=== PATIENT | male | born 1960 | race Caucasian/White ===

== ENCOUNTER 2018-04-23 12:54 | Day surgery (SDC) | payer OTHER ==
[2018-04-23] MEDS: NS 1,000 ML IV (13:15)
[2018-04-23] MEDS ORDERED: fentaNYL 100 MCG/2 ML INJECTION (J3010) As Ordered (15:08)
[2018-04-23] MEDS ORDERED: PROPOFOL 200 MG/20 ML VIAL As Ordered (15:08)
[2018-04-23] MEDS ORDERED: LIDOCAINE 2% INJ 100 MG/5 ML SDV (FOR ANES.) As Ordered (15:08)
== END 2018-04-23 15:52 | disposition home or self-care (01) ==
LOC: M OPP 12:54
DX: R12 Heartburn (principal); K22.8 Other specified diseases of esophagus; K44.9 Diaphragmatic hernia without obstruction or gangrene; E78.5 Hyperlipidemia, unspecified; K21.9 Gastro-esophageal reflux disease without esophagitis; M19.90 Unspecified osteoarthritis, unspecified site; Z96.651 Presence of right artificial knee joint; Z79.899 Other long term (current) drug therapy; Z80.7 Family history of other malignant neoplasms of lymphoid, hematopoietic and related tissues
CPT/HCPCS: 43239

== ENCOUNTER → 2020-07-26 | Outpatient (CLI) | payer OTHER ==
[~2020-07-26] MED LIST: ACET65TA OR; COUM1TAB17 OR; CRESTOR PO; OMEP-221; PANT40TA29 PO; PERC7.5T8 OR; ROSU5TAB5 PO; SUCR1TAB56 PO
== END ==
LOC: M LABSMTC 11:10
PROVIDERS: ATTEND Anesthesiology
DX: Z01.812 Encounter for preprocedural laboratory examination (principal); Z20.828 Contact with and (suspected) exposure to other viral communicable diseases
CPT/HCPCS: C9803; U0003

== ENCOUNTER 2020-07-31 11:48 | Day surgery (SDC) | payer OTHER ==
[~2020-07-31] VITALS: Ht 162.6 cm; Wt 83.6 kg
[~2020-07-31 11:48] MED LIST changes: +NS 1,000 ML IV ONE
[2020-07-31] MEDS ORDERED: propofoL 200 MG/20 ML VIAL As Ordered ONE (11:57)
[2020-07-31] MEDS ORDERED: LIDOCAINE 2% 100MG/5ML SDV (FOR ANES.) As Ordered ONE (11:57)
[2020-07-31] MEDS ORDERED: fentaNYL 100 MCG/2 ML INJECTION (J3010) As Ordered ONE (13:09)
[2020-07-31] MEDS ORDERED: ePHEDrine SULFATE 25 MG/5 ML(5MG/ML) SYRINGE As Ordered ONE (13:26)
--- NOTE | 2020-07-31 13:27 | ROOR ---
Patient Name: Marcus Garcia Procedure Date: 07/31/2020 1:07 PM Date of : 1960 Age: 60 Room: [facility] Gender: Male Note Status: Finalized Procedure: Upper GI endoscopy Indications: Surveillance for malignancy due to personal history of Junior's esophagus, Heartburn Providers: Robin BATEMAN MD Referring MD: Thai Olvera MD Requesting Provider: Medicines: Monitored Anesthesia Care Complications: No immediate complications. Procedure: Pre-Anesthesia Assessment: - The heart rate, respiratory rate, oxygen saturations, blood pressure, adequacy of pulmonary ventilation, and response to care were monitored throughout the procedure. The Endoscope was introduced through the mouth, and advanced to the second part of duodenum. The upper GI endoscopy was accomplished without difficulty. The patient tolerated the procedure well. Findings: The Z-line was variable and was found 39 cm from the incisors. This was biopsied with a cold forceps for histology. The exam of the esophagus was otherwise normal. Small Hiatal Hernia. The entire examined stomach was normal. Prominent, but not necessarily abnormal papilla. This was biopsied with a cold forceps for histology. The exam of the duodenum was otherwise normal. Impression: - Z-line variable, 39 cm from the incisors. Biopsied. - Small Hiatal Hernia. - Normal stomach. - Prominent, but not necessarily abnormal papilla. Biopsied. - The duodenum is otherwise normal Recommendation: - Observe patient's clinical course. - Continue present medications. - Repeat upper endoscopy in 3 years for surveillance. Robin Bateman MD Robin BATEMAN MD 07/31/2020 1:26:56 PM Electronically signed by Robin BATEMAN MD Number of Addenda: 0 Note Initiated On: 07/31/2020 1:07 PM Estimated Blood Loss: Estimated blood loss: none.
--- NOTE | 2020-07-31 13:37 | ROOR ---
Patient Name: Marcus Garcia Procedure Date: 07/31/2020 1:08 PM Date of : 1960 Age: 60 Room: [facility] Gender: Male Note Status: Finalized Procedure: Colonoscopy Indications: High risk colon cancer surveillance: Personal history of colonic polyps Providers: Robin BATEMAN MD Referring MD: Thai Olvera MD Requesting Provider: Medicines: Monitored Anesthesia Care Complications: No immediate complications. Procedure: Pre-Anesthesia Assessment: - The heart rate, respiratory rate, oxygen saturations, blood pressure, adequacy of pulmonary ventilation, and response to care were monitored throughout the procedure. The Colonoscope was introduced through the anus and advanced to the terminal ileum, with identification of the appendiceal orifice and IC valve. The colonoscopy was performed without difficulty. The patient tolerated the procedure well. The quality of the bowel preparation was good. Findings: The perianal and digital rectal examinations were normal. Internal hemorrhoids were found during retroflexion. The hemorrhoids were moderate. The entire examined colon appeared normal on direct and retroflexion views. The terminal ileum appeared normal. Impression: - Internal hemorrhoids. - The entire colon is normal on direct and retroflexion views. - The examined portion of the ileum was normal. - No specimens collected. Recommendation: - Repeat colonoscopy in 5 years for surveillance. Robin Bateman MD Robin BATEMAN MD 07/31/2020 1:37:28 PM Electronically signed by Robin BATEMAN MD Number of Addenda: 0 Note Initiated On: 07/31/2020 1:08 PM Estimated Blood Loss: Estimated blood loss: none.
[2020-07-31 14:04] VITALS: BP 116/71
== END 2020-07-31 14:05 | disposition home or self-care (01) ==
LOC: M OPP 11:48
PROVIDERS: ATTEND Internal Medicine Gastroenterology
DX: Z86.010 Personal history of colon polyps (principal); Z09 Encounter for follow-up examination after completed treatment for conditions other than malignant neoplasm; K64.8 Other hemorrhoids; K22.8 Other specified diseases of esophagus; K22.70 Barrett's esophagus without dysplasia; K44.9 Diaphragmatic hernia without obstruction or gangrene; R12 Heartburn; Z79.899 Other long term (current) drug therapy
CPT/HCPCS: 43239; 45378; 88305; J3010

== ENCOUNTER → 2020-10-08 | Outpatient (CLI) | payer OTHER ==
[~2020-10-08] MED LIST changes: -NS 1,000 ML IV ONE
[2020-10-08 11:51] LABS: HEMATOCRIT 45.8 % (42.0-52.0); HEMOGLOBIN 14.9 g/dl (13.5-17.5); MEAN CORPUSCULAR HEMOGLOBIN 28.3 pg (27.0-33.0); MEAN CORPUSCULAR HGB CONC 32.5 g/dl (32.0-36.5); MEAN CORPUSCULAR VOLUME 86.9 fl (80.0-96.0); PLATELET COUNT, AUTOMATED 201 10^3/uL (150-450); RED BLOOD COUNT 5.27 10^6/uL (4.30-6.10)
[2020-10-08 12:06] LABS: INR 0.82; PROTHROMBIN TIME 11.5 SECONDS (12.5-14.3)
[2020-10-08 12:28] LABS: ALBUMIN 4.3 GM/DL (3.2-5.2); ALT/SGPT 49 U/L (12-78); BILIRUBIN,TOTAL 0.5 MG/DL (0.2-1.0); BLOOD UREA NITROGEN 19 MG/DL (7-18); CALCIUM LEVEL 9.5 MG/DL (8.8-10.2); CARBON DIOXIDE LEVEL 30 MEQ/L (21-32); CHLORIDE LEVEL 106 MEQ/L (98-107); CREATININE FOR GFR 1.14 MG/DL (0.70-1.30); GLOMERULAR FILTRATION RATE > 60.0 (>49); GLUCOSE, FASTING 91 MG/DL (70-100); POTASSIUM SERUM 4.3 MEQ/L (3.5-5.1); SODIUM LEVEL 139 MEQ/L (136-145); TOTAL PROTEIN 7.7 GM/DL (6.4-8.2)
[2020-10-08 12:29] LABS: ERYTHROCYTE SEDIMENTATION RATE 5 mm/hr (0-20)
--- NOTE | 2020-10-08 15:09 | REP ---
INDICATION: OSTEOARTHRITIS LEFT KNEE LAB 1ST EKG 2ND XR 3RD. COMPARISON: Comparison chest x-ray September 05, 2010. TECHNIQUE: Two views.. FINDINGS: The lungs are well inflated and free of infiltrate. The pleural angles are sharp. The heart size is normal. Pulmonary vasculature is not increased. No significant bony abnormality is seen. There are degenerative changes in the thoracic spine. IMPRESSION: No active disease.. <Electronically signed by Yaya Hart > 10/08/20 [id number]
--- NOTE | 2020-10-09 08:33 | ECGEPIP ---
[facility] Test Date: 2020-10-08 Pat Name: JOANIE WEST Department: Room: - Gender: Male [place]: : 1960 Requested By: David Borja Order Number: [id number] Reading MD: Moi Terrell Measurements Intervals [place] Rate: 72 P: 34 ND: 147 QRS: 26 QRSD: 91 T: 17 QT: 378 QTc: 414 Interpretive Statements SINUS RHYTHM Normal Electronically Signed on 10-09-2020 8:32:55 EST by Moi Terrell
== END ==
LOC: M LAB 11:12
PROVIDERS: ATTEND Orthopaedic Surgery
DX: M17.12 Unilateral primary osteoarthritis, left knee (principal)

== ENCOUNTER → 2020-10-21 | Outpatient (CLI) | payer OTHER ==
[~2020-10-21] MED LIST changes: -OMEP-221; +OMEP-221 PO
== END ==
LOC: M LABSMTC 08:06
PROVIDERS: ATTEND Anesthesiology
DX: Z01.812 Encounter for preprocedural laboratory examination (principal); Z20.828 Contact with and (suspected) exposure to other viral communicable diseases

== ENCOUNTER 2020-10-24 09:43 | Inpatient (IN) | payer OTHER ==
--- NOTE | 2020-10-17 11:59 | HPE ---
HISTORY AND PHYSICAL DATE OF ANTICIPATED ADMISSION: 10/24/2020 CHIEF COMPLAINT: Left knee pain and stiffness. ATTENDING: David Gold M.D. HISTORY OF PRESENT ILLNESS: This is a 60-year-old male patient with progressively worsening left knee pain and stiffness. He has failed to improve with conservative management to include injections in his left knee. He has elected for surgery for his continued symptoms. He is consented for a left total knee arthroplasty with Dr. Gold. X-rays notable for [id number] tricompartmental degenerative changes of the left knee. Medical optimization pending with Dr. Olvera. ALLERGIES: No known drug allergies. CURRENT MEDICATIONS: - Prilosec 10 mg one tablet once per day - Crestor one tablet once per day PAST MEDICAL HISTORY: Medical conditions include symptomatic osteoarthritis of the left knee, osteoarthritis of the left knee, gastric reflux disease, and elevated cholesterol. FAMILY HISTORY: Non-contributory. SOCIAL HISTORY: He does not currently smoke. He uses alcohol on an occasional basis. REVIEW OF SYSTEMS: Denies fevers or chills. Denies chest pain, shortness of breath, or cough. Denies difficulty breathing. Denies abdominal pain. Denies nausea or vomiting. Denies recent exposure to COVID-19. Notes persistent pain in his left knee with weightbearing activities and activities of daily living. PHYSICAL EXAMINATION: GENERAL APPEARANCE: Today reveals a patient who walks with a slightly limped gait favoring his right side. NECK: Supple without adenopathy or JVD. LUNGS: Clear to auscultation without rales or wheeze. HEART: Regular rate and rhythm. ABDOMEN: Bowel sounds are present. EXTREMITIES: Exam of the knee reveals the skin to be intact. No erythema, edema, or ecchymosis. There is tenderness mildly over the medial joint line and some tenderness laterally as well. Patellar grind is irritable. Range of motion is full with some irritability at the extremes of range of motion. The calf is soft and nontender to palpation. There is a well-perfuse left lower extremity. LABORATORY DATA: ProTime 11.5, INR 0.82. Glucose 91, BUN 19, creatinine 1.14, sodium 139, potassium 4.3. Sed rate of 5. WBC count of 6. RBC count of 5.2, hemoglobin 14.9, hematocrit 45.8. IMAGING: Chest x-ray with no acute cardiopulmonary disease process noted. EKG sinus rhythm. IMPRESSION: Symptomatic osteoarthritis of the left knee. PLAN: He has been consented for a left total knee arthroplasty by Dr. Gold. We reviewed his postoperative and preoperative instructions to include n.p.o. after midnight, what n.p.o. means, and only take the medications as directed by his primary. He knows to stop NSAIDs five days prior to surgery and understands what NSAIDs are. He understands the self-quarantine after his COVID testing and he needs to be on time for the appointment. We discussed the current status for inpatient. We discussed COVID for visitors. All of his questions were answered.
[~2020-10-24] VITALS: Ht 160 cm; Wt 85.2 kg
[2020-10-24] VITALS (7 sets, daily range): BP systolic 110–143; BP diastolic 65–99
[~2020-10-24 09:43] MED LIST changes: +ACETAMINOPHEN 500 MG TAB PO ONE; +LR 1,000 ML IV ONE; +ceFAZolin SOD 2 GM in IV 1 EA IV ONE
[2020-10-24] MEDS ORDERED: BUPIVACAINE HCL 0.25% 10ML VIAL As Ordered ONE (12:19)
[2020-10-24] MEDS ORDERED: TRANEXAMIC ACID 100 MG/ML 10ML VIAL As Ordered ONE (12:19)
[2020-10-24] MEDS ORDERED: EPINEPHrine INJ 1 MG/ML 1ML AMP As Ordered ONE (12:20)
[2020-10-24] MEDS ORDERED: BUPIVACAINE LIPOSOME/PF 1.3% 20ML VIAL (13.3MG/ML)(EXPAREL)(C9290 PER1MG) As Ordered ONE (12:20)
[2020-10-24] MEDS ORDERED: LIDOCAINE 2% 100MG/5ML SDV (FOR ANES.) As Ordered ONE (12:48)
[2020-10-24] MEDS ORDERED: propofoL 200 MG/20 ML VIAL As Ordered ONE ×2 (12:48→15:04)
[2020-10-24] MEDS ORDERED: MIDAZOLAM INJ 2MG/2ML VIAL (J2250 PER 1MG) As Ordered ONE (12:48)
[2020-10-24] MEDS ORDERED: ONDANSETRON 4MG/2ML VIAL As Ordered ONE (12:48)
[2020-10-24] MEDS ORDERED: fentaNYL 100 MCG/2 ML INJECTION (J3010) As Ordered ONE (12:48)
[2020-10-24] MEDS ORDERED: MIDAZOLAM INJ 2MG/2ML VIAL (J2250 PER 1MG) IV PRN (13:15)
[2020-10-24] MEDS ORDERED: dexameTHASONE 10MG/1ML VIAL PRES.FREE (J1100 PER 1MG) XX ONE (13:15)
[2020-10-24] MEDS ORDERED: fentaNYL 100 MCG/2 ML INJECTION (J3010) IV PRN ×2 (13:15→16:30)
[2020-10-24] MEDS ORDERED: EPINEPHrine INJ 1 MG/ML 1ML AMP XX ONE (13:15)
[2020-10-24] MEDS ORDERED: ROPIvacaine 0.5% 30ML INJECTION (J2795 PER 1MG) XX ONE (13:30)
[2020-10-24] MEDS: ceFAZolin 1GM VIAL (J0690 PER 500MG) As Ordered ONE ×2 (14:33→14:36)
[2020-10-24] MEDS ORDERED: GLYCOPYRROLATE INJ 0.2 MG/ML 2 ML VIAL As Ordered ONE (14:52)
--- NOTE | 2020-10-24 16:23 | REP ---
INDICATION: POST OP EVAL IN PACU WILL CALL WHEN READY COMPARISON: None. TECHNIQUE: AP and cross-table lateral views. FINDINGS: Normal appearance and positioning to the femoral and tibial components. Overlying postsurgical changes and skin charles noted. IMPRESSION: Status post left knee replacement. Satisfactory positioning. <Electronically signed by Ritesh Gonzales > 10/24/20 [id number]
[2020-10-24] MEDS ORDERED: ONDANSETRON 4MG/2ML VIAL IV PRN ×2 (16:30)
[2020-10-24] MEDS ORDERED: oxyCODONE 5MG TAB PO PRN (16:30)
[2020-10-24] MEDS ORDERED: ACETAMINOPHEN TAB 650MG DOSE (2X325MG) PO PRN (16:30)
[2020-10-24] MEDS ORDERED: MORPHINE 4 MG/ML 1ML VIAL/SYRINGE (J2270) IV PRN (16:30)
[2020-10-24] MEDS ORDERED: MORPHINE 2 MG/ML 1ML VIAL (J2270) IV PRN (16:30)
[2020-10-24] MEDS ORDERED: LR 1,000 ML IV SCH ×2 (16:30)
[2020-10-24] MEDS ORDERED: PERCOCET 5MG/325MG TAB PO PRN ×2 (16:30)
--- NOTE | 2020-10-24 18:15 | HPEPDOC ---
[facility] Medical History & Physical Date of Admission Oct 24, 2020 Date of Service: Oct 24, 2020 History and Physical CHIEF COMPLAINT: medicine consult post op left knee tka HISTORY OF PRESENT ILLNESS: This is a 60-year-old male patient with progressively worsening left knee pain and stiffness. He has failed to improve with conservative management to include injections in his left knee. He has elected for surgery for his continued symptoms. Today he underwent left TKA. Currently he denies any medical complaints. Denies chest pain, shortness of breath, PAEZ, N/V/D, abdominal pain. PAST MEDICAL HISTORY: #GERD #DLP PAST SURGICAL HISTORY: #right TKA ALLERGIES: Please see below. REVIEW OF SYSTEMS: Negative except as per HPI HOME MEDICATIONS: Please see below. PHYSICAL EXAMINATION: VITAL SIGNS: See below General: NAD, lyign comfortably in bed HEENT: NC/AT, EOMI Lungs: CTA B/L Heart: +S1S2, RRR Abd: soft, NT, +BS LABORATORY DATA: See below. MICROBIOLOGY: Please see below. A/P: 60 male POD #0 for elective left TKA, with PMHx symptomatic OA of the left knee failing outpatient therapy, GERD, DLP. #OA left knee - POD #0 left TKA - follow as per primary team - ortho #GERD - prilosec as per home meds #DLP - Crestor as per home meds #DVT prophylaxis - as per ortho Vital Signs Vital Signs Date Time Temp Pulse Resp B/P (MAP) Pulse Ox O2 Delivery O2 Flow Rate FiO2 10/24/20 16:57 85 18 110/65 (80) 93 Nasal Cannula 2.0 10/24/20 16:55 93.6 Home Medications Scheduled Omeprazole (Omeprazole) 40 Mg Capsule.dr, 40 MG PO BID Rosuvastatin Calcium (Rosuvastatin Calcium) 5 Mg Tab, 5 MG PO DAILY Allergies Coded Allergies: No Known Allergies (Unverified , 10/17/20) A-FIB/CHADSVASC A-FIB History Current/History of A-Fib/PAF?: No STEVE WYATT MD Oct 24, 2020 18:15
[2020-10-24] MEDS ORDERED: PILL CUTTER 1 EACH XX PRN (18:30)
--- NOTE | 2020-10-24 19:53 | RO ---
OPERATIVE NOTE DATE OF OPERATION: 10/24/2020 PREOPERATIVE DIAGNOSIS: Left knee degenerative arthritis. POSTOPERATIVE DIAGNOSIS: Left knee degenerative arthritis. PROCEDURE: Left total knee arthroplasty using a size 5 femoral component cruciate-retaining with a size 5 tibial tray and a 6 mm rotating platform polyethylene insert and a 35 mm polyethylene button. All components were cemented. Prosthesis was made by [employer]. It was an Att[employer] knee. SURGEON: David Morton MD CORN BREEDER: Jethro Odom PA-C ANESTHESIA: Spinal with left femoral nerve block. COMPLICATIONS: None. ESTIMATED BLOOD LOSS: 20 mL. SPECIMENS: Joint surface. PROCEDURE: Antibiotics were given intravenously preoperatively and successful left femoral nerve block and then spinal anesthetic was induced. Tourniquet placed on the left upper thigh and not inflated. Then the left lower extremity was carefully prepped and draped in usual sterile fashion and then elevated. After appropriate time out, the tourniquet was inflated. A longitudinal incision was then made for a medial parapatellar approach to the knee. Bovie cautery was used to coagulate the crossing vessels. A medial parapatellar arthrotomy performed. Subperiosteal dissection around the proximal medial and lateral tibial plateaus performed. Then we everted the patella and flexed the knee. The remnant of the ACL was debrided. A drill was placed down the center of the femoral canal followed by the intramedullary chelly. The distal femoral cutting jig set at 9 mm of resection at 5 degrees valgus for a left knee. The block was pinned into position, a distal femoral cut performed. Anterior-posterior sizing jig measured for a 5. Three degrees of external rotation were dialed in for a left knee. Pins were placed, a four-in-one block applied. Anterior, posterior chamfer cuts performed. The sulcus osteotomy jig was then applied and the sulcus osteotomy performed. The proximal tibia was exposed and we used the extramedullary jig to estimate being parallel to the mechanical axis of the tibia, referencing off the medial tibial condyle at 4 mm resection level. The block was pinned into position. A second checked with the extramedullary chelly confirmed that we appeared to be parallel to the mechanical axis. Thus, the proximal tibial osteotomy was performed. We then placed the laminar tugger operator laterally and we performed a completion medial meniscectomy, debridement of the posteromedial osteophytes. We then placed a laminar tugger operator medially and performed a completion lateral meniscectomy and debridement of the posterolateral osteophytes. The sizing spacer block fit symmetrically with 6 mm in both flexion and in extension. Thus, I felt this was an appropriate size. We then exposed the proximal tibia, sized for a #5 tibial tray. We then reamed, broached and then placed the trial polyethylene and then the trial femoral component and brought the knee out in extension and everted the patella, performed a patellar osteotomy sized for a 35 button. Lug holes were drilled. A trial was placed and patellofemoral tracking was anatomic. He had a slight tendency to be a bit tight in flexion. Thus, I did release a little bit of a PCL. The lug holes for the femur were then drilled. Then we removed all the trial components, placed Exparel in the subperiosteal tissues around the distal femur and the proximal tibia and then my construction administrative assistant, Mr. Odom, mixed the cement on the back table as I prepared the bony surfaces for cementing with a copious amount of pulsatile lavage irrigant solution. He was also critical to the success of this difficult procedure by helping to manipulate the knee, help with appropriate soft tissue retraction, help to mix cement, close the wound amongst many other tasks to allow me to perform my operation smoothly, efficiently and safely. Once all the bony surfaces were thoroughly dried, we cemented the tibial tray, removed excess cement, placed the polyethylene, then cemented the femoral component, removed excess cement and then brought the knee into extension, cemented the patellar button, held it with a clamp, removed excess cement and held this position in extension until the cement hardened. As we awaiting this, we copiously pulsatile lavaged out and irrigated out the knee again as we did several times throughout the surgery. Tranexamic acid was then placed in the depths of the wound and we began closing the apex of the arthrotomy with two #1 PDS sutures. The medial parapatellar area was closed with a #1 PDS suture and then the capsule was closed with a running double-armed Stratafix. Once the capsule was closed, the tourniquet was released. We irrigated between layers. We closed the deep subdermal tissues with interrupted 2-0 PDS sutures and the skin was closed with charles, covered by an Optifoam and a dry sterile bulky dressing. He was then transferred to the recovery room in stable condition. There were no intraoperative complications. [facility]
[2020-10-24] MEDS: ASPIRIN 81 MG ENTERIC TAB PO SCH (21:52)
[2020-10-24] MEDS: OMEPRAZOLE 20 MG CAP PO SCH (21:53)
[2020-10-24] MEDS: ceFAZolin SOD 2 GM in IV 1 EA IV SCH (21:53)
[2020-10-25 02:00] VITALS: BP 128/87
[2020-10-25] MEDS: ceFAZolin SOD 2 GM in IV 1 EA IV SCH ×2 (05:18→09:46)
[2020-10-25 05:48] VITALS: BP 125/82
[2020-10-25] MEDS ORDERED: PERC5TAB12 PO (06:01)
[2020-10-25] MEDS ORDERED: XARE10TA PO (06:01)
[2020-10-25 06:13] LABS: HEMOGLOBIN 14.5 g/dl (13.5-17.5); MEAN CORPUSCULAR HEMOGLOBIN 29.2 pg (27.0-33.0); MEAN CORPUSCULAR VOLUME 88.7 fl (80.0-96.0); PLATELET COUNT, AUTOMATED 218 10^3/uL (150-450); RED BLOOD COUNT 4.96 10^6/uL (4.30-6.10); WHITE BLOOD COUNT 12.4 10^3/uL (4.0-10.0)
[2020-10-25 06:45] LABS: BLOOD UREA NITROGEN 18 MG/DL (7-18); CALCIUM LEVEL 8.5 MG/DL (8.8-10.2); CARBON DIOXIDE LEVEL 26 MEQ/L (21-32); CHLORIDE LEVEL 103 MEQ/L (98-107); CREATININE FOR GFR 1.12 MG/DL (0.70-1.30); GLOMERULAR FILTRATION RATE > 60.0 (>49); GLUCOSE, FASTING 159 MG/DL (70-100); POTASSIUM SERUM 4.2 MEQ/L (3.5-5.1); SODIUM LEVEL 136 MEQ/L (136-145)
--- NOTE | 2020-10-25 07:55 | IPN ---
PROGRESS NOTE DATE: 10/25/2020 SUBJECTIVE: Marcus is postop left total knee arthroplasty. Postop course has been uncomplicated Pain is under adequate control. He has a history of hyperlipidemia and GERD. He denies any chest pain, shortness of breath or palpitations. PHYSICAL EXAMINATION: VITAL SIGNS: Stable. Blood pressure 125/82. GENERAL APPEARANCE: Alert, conversant, in no distress. LUNGS: Clear. HEART: Regular heart rhythm. ABDOMEN: Soft, nontender, no masses. No peripheral edema. LABORATORY DATA: White count is 12.4, hemoglobin is 14.5, platelets 218,000. BMP unremarkable. Glucose this morning was 159. IMPRESSION: 1. Hyperlipidemia, continue Crestor, he takes a typical dose 5 mg daily. 2. Status post left knee replacement, anticoagulation is as per orthopedics. 3. Hyperglycemia. Fasting blood sugar is mildly elevated, probably stress hyperglycemia. Add a hemoglobin A1c to tomorrow's labs.
[2020-10-25] MEDS: OMEPRAZOLE 20 MG CAP PO SCH (08:17)
[2020-10-25] MEDS: ASPIRIN 81 MG ENTERIC TAB PO SCH (08:21)
[2020-10-25] MEDS ORDERED: MOM 30ML SUSPENSION UDC PO SCH (09:00)
[2020-10-25] MEDS ORDERED: ROSUVASTATIN 10 MG TAB (CRESTOR) PO SCH (09:00)
[2020-10-25] MEDS ORDERED: MIRALAX *UNIT DOSE* 17GM PACKET PO SCH (09:00)
== END 2020-10-25 10:50 | disposition home or self-care (01) | DRG 470 ==
LOC: M OR 09:43 → M MS5PR 17:07
PROVIDERS: ADMIT Orthopaedic Surgery; ATTEND Orthopaedic Surgery
PROC: 0SRD0J9 Replacement of Left Knee Joint with Synthetic Substitute, Cemented, Open Approach (ICD-10-PCS; principal; 2020-10-24 13:45)
DX: M17.12 Unilateral primary osteoarthritis, left knee (principal); Z79.899 Other long term (current) drug therapy; K21.9 Gastro-esophageal reflux disease without esophagitis; E78.00 Pure hypercholesterolemia, unspecified; Z96.651 Presence of right artificial knee joint; E78.5 Hyperlipidemia, unspecified

== ENCOUNTER → 2023-11-25 | Outpatient (REF) | payer OTHER ==
[~2023-11-25] MED LIST changes: -ACETAMINOPHEN 500 MG TAB PO ONE; -LR 1,000 ML IV ONE; -OMEP-221 PO; +OMEP40CA5 PO; +PERC5TAB12 PO; +XARE10TA PO; -ceFAZolin SOD 2 GM in IV 1 EA IV ONE
[2023-11-27 07:12] LABS: PSA TOTAL 2.8 ng/mL (0.0-4.0)
== END ==
LOC: M LAB REF 12:43
PROVIDERS: ATTEND Internal Medicine
DX: R97.20 Elevated prostate specific antigen [PSA] (principal)

== ENCOUNTER 2024-03-14 12:13 | Day surgery (SDC) | payer OTHER ==
[~2024-03-14] VITALS: Ht 160 cm; Wt 83.9 kg
[~2024-03-14 12:13] MED LIST changes: +PRAV40TA2 PO; +ROSU5TAB40 PO; -ROSU5TAB5 PO
[2024-03-14] MEDS: NS 1,000 ML IV ONE (12:33)
[2024-03-14] MEDS ORDERED: propofoL 500 MG/50 ML VIAL As Ordered ONE (13:17)
[2024-03-14] MEDS ORDERED: LIDOCAINE 2% 100MG/5ML SDV (FOR ANES.) As Ordered ONE (13:17)
[2024-03-14 13:47] VITALS: TEMP 96.9
[2024-03-14 14:16] VITALS: BP 117/87; O2SAT 97
== END 2024-03-14 14:22 | disposition home or self-care (01) ==
LOC: M OPP 12:13
PROVIDERS: ATTEND Internal Medicine Gastroenterology
DX: K22.70 Barrett's esophagus without dysplasia (principal); K44.9 Diaphragmatic hernia without obstruction or gangrene; K31.89 Other diseases of stomach and duodenum; K22.89 Other specified disease of esophagus; K21.9 Gastro-esophageal reflux disease without esophagitis; E78.00 Pure hypercholesterolemia, unspecified; Z79.899 Other long term (current) drug therapy

== ENCOUNTER 2025-10-09 07:55 | Day surgery (SDC) | payer MEDICARE, OTHER ==
[~2025-10-09] VITALS: Ht 160 cm; Wt 83.5 kg
[~2025-10-09 07:55] MED LIST changes: -PRAV40TA2 PO; +PRAV40TA85 PO; +REPA140I2 SC; -ROSU5TAB40 PO; +ROSU5TAB49 PO
[2025-10-09] MEDS ORDERED: GLYCOPYRROLATE INJ 0.2 MG/ML 2 ML VIAL As Ordered ONE (08:55)
[2025-10-09] MEDS ORDERED: LIDOCAINE 2% 100 MG/5 ML SDV (FOR ANES.) As Ordered ONE (08:55)
[2025-10-09 09:38] VITALS: TEMP 97.7
[2025-10-09 10:00] VITALS: BP 117/71; O2SAT 97
== END 2025-10-09 10:18 | disposition home or self-care (01) ==
LOC: M OPP 07:55
PROVIDERS: ATTEND Internal Medicine Gastroenterology
DX: Z12.11 Encounter for screening for malignant neoplasm of colon (principal); K63.5 Polyp of colon; K64.8 Other hemorrhoids; Z86.0100 Personal history of colon polyps, unspecified; Z79.899 Other long term (current) drug therapy
CPT/HCPCS: 45385; 88305; J1596